=== PATIENT | male | born 1995 | race Caucasian/White ===

== ENCOUNTER 2024-02-04 11:07 | Emergency (ER) | payer MEDICAID ==
[~2024-02-04] VITALS: Ht 172.7 cm; Wt 77.3 kg
[2024-02-04] MEDS: levetiracetam inj 1,000 MG in normal saline 100ml IV soln 100 ML IV STA (12:04)
[2024-02-04] MEDS: chlordiazePOXIDE 25mg capsule PO ONE (12:04)
[2024-02-04] MEDS: normal saline 1000ML IV soln IVB ONE (12:30)
[2024-02-04 12:51] VITALS: TEMP 97.8
[2024-02-04] MEDS ORDERED: CHLO25CA10 PO (12:52)
[2024-02-04 13:47] VITALS: BP 134/78; PULSE 97; RESP 23; O2SAT 99
== END 2024-02-04 13:49 | disposition home or self-care (01) ==
LOC: ER 11:08
DX: F10.139 Alcohol abuse with withdrawal, unspecified (principal); R56.9 Unspecified convulsions; M25.512 Pain in left shoulder; Z79.899 Other long term (current) drug therapy
CPT/HCPCS: 93005; 96360; 99284; J7030